=== PATIENT | female | born 1955 | race Caucasian/White ===

== ENCOUNTER → 2016-11-22 | Outpatient (CLI) | payer OTHER, SELFPAY ==
[~2016-11-22] MED LIST: LACTULOSE10 GM/151 PO; LIPITOR TAB 2020 MG PO; LISINOPRIL20 MG PO; LORTAB 7.5-3251 EACH PO; METFORMIN HCL500 MG PO; METHOCARBAMOL750 MG PO; NORVASC 5 MG TAB5 MG PO; OMEPRAZOLE40 MG PO; PROMETHAZINE HC25 M1 PO
== END ==
LOC: KOH-I 12:06
DX: C15.9 Malignant neoplasm of esophagus, unspecified (principal); K22.8 Other specified diseases of esophagus; K76.89 Other specified diseases of liver; E27.9 Disorder of adrenal gland, unspecified
CPT/HCPCS: 71260; 74177; Q9962

== ENCOUNTER → 2016-11-28 | Outpatient (CLI) | payer OTHER, SELFPAY | LOC: KOH-I 12:58 | DX: C79.9 Secondary malignant neoplasm of unspecified site (principal); R51 Headache | CPT/HCPCS: 70450 ==

== ENCOUNTER → 2016-12-07 | Day surgery (SDC) | payer OTHER, SELFPAY | END | disposition home or self-care (01) | LOC: OR 06:44 | PROVIDERS: Surgery | PROC: 05HM33Z Insertion of Infusion Device into Right Internal Jugular Vein, Percutaneous Approach (ICD-10-PCS; 2016-12-07) | PROC: B513ZZA Fluoroscopy of Right Jugular Veins, Guidance (ICD-10-PCS; 2016-12-07) | PROC: 0JH60XZ Insertion of Tunneled Vascular Access Device into Chest Subcutaneous Tissue and Fascia, Open Approach (ICD-10-PCS; principal; 2016-12-07 09:00) | DX: C15.9 Malignant neoplasm of esophagus, unspecified (principal); I10 Essential (primary) hypertension; M81.0 Age-related osteoporosis without current pathological fracture; E11.9 Type 2 diabetes mellitus without complications; F17.210 Nicotine dependence, cigarettes, uncomplicated; Z79.891 Long term (current) use of opiate analgesic; Z79.899 Other long term (current) drug therapy; Z86.69 Personal history of other diseases of the nervous system and sense organs; Z87.891 Personal history of nicotine dependence; Z98.41 Cataract extraction status, right eye; Z98.42 Cataract extraction status, left eye; Z87.19 Personal history of other diseases of the digestive system | CPT/HCPCS: 71010; 77001; 82962; C1769; C1788; J0690; J1100; J1644; J2250; J2405; J3010; J3370; J7030; J7120 ==

== ENCOUNTER → 2016-12-25 | Day surgery (SDC) | payer OTHER, SELFPAY ==
[~2016-12-25] VITALS: Ht 154.9 cm; Wt 55.8 kg
== END | disposition home or self-care (01) ==
LOC: OR 06:16
PROVIDERS: Surgery
PROC: 0DH63UZ Insertion of Feeding Device into Stomach, Percutaneous Approach (ICD-10-PCS; principal; 2016-12-25 07:30)
DX: C15.5 Malignant neoplasm of lower third of esophagus (principal); I10 Essential (primary) hypertension; K21.9 Gastro-esophageal reflux disease without esophagitis; E11.9 Type 2 diabetes mellitus without complications; M81.0 Age-related osteoporosis without current pathological fracture; I87.8 Other specified disorders of veins; Z86.010 Personal history of colon polyps; Z87.891 Personal history of nicotine dependence; Z79.891 Long term (current) use of opiate analgesic; Z79.899 Other long term (current) drug therapy; Z98.49 Cataract extraction status, unspecified eye
CPT/HCPCS: 82962; J7120